=== PATIENT | male | born 1990 ===

== ENCOUNTER 2017-12-22 21:34 | Emergency (ER) | payer OTHER ==
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
[2017-12-23 00:15] VITALS: BP 146/74
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
== END 2017-12-23 00:13 | disposition home or self-care (01) ==
LOC: ED 21:34
DX: M79.602 Pain in left arm (principal); Z04.1 Encounter for examination and observation following transport accident
CPT/HCPCS: 99281